=== PATIENT | female | born 1970 | race Asian ===

== ENCOUNTER 2021-03-21 18:13 | Emergency (ER) | payer OTHER ==
[~2021-03-21] VITALS: Ht 162.6 cm; Wt 79.0 kg
[2021-03-21 20:26] LABS: COVID AG,FIA SOURCE NASOPHARYNGEAL
[2021-03-21 20:41] LABS: INFLUENZA TYPE A NEGATIVE FOR TYPE A (NEGATIVE); INFLUENZA TYPE B NEGATIVE FOR TYPE B (NEGATIVE)
[2021-03-21 21:12] VITALS: BP 142/84
== END 2021-03-21 22:15 | disposition home or self-care (01) ==
LOC: EMS 18:14
DX: J45.901 Unspecified asthma with (acute) exacerbation (principal); F32.9 Major depressive disorder, single episode, unspecified; F41.9 Anxiety disorder, unspecified; Z20.822 Contact with and (suspected) exposure to COVID-19
CPT/HCPCS: 71045; 87804; 99284

== ENCOUNTER 2023-03-22 18:45 | Emergency (ER) | payer OTHER ==
[~2023-03-22] VITALS: Ht 160 cm; Wt 77.3 kg
[2023-03-22 18:49] VITALS: BP 116/90; PULSE 84; RESP 16; TEMP 98.3
[2023-03-22] MEDS ORDERED: IBUP-1492 PO (18:51)
[2023-03-22] MEDS ORDERED: ALBU2.5V39 NEB (18:51)
[2023-03-22] MEDS ORDERED: CITA10TA99 PO (18:51)
== END 2023-03-22 20:56 | disposition left against medical advice (07) ==
LOC: EMS 18:46
DX: M25.512 Pain in left shoulder (principal); Z53.21 Procedure and treatment not carried out due to patient leaving prior to being seen by health care provider
CPT/HCPCS: 99281; Z7502